=== PATIENT | female | born 1955 | race Caucasian/White ===

== ENCOUNTER 2017-11-23 09:26 | Emergency (ER) | payer OTHER ==
[~2017-11-23] VITALS: Ht 154.9 cm; Wt 74.5 kg
[~2017-11-23 09:26] MED LIST: ACTONEL35 MG; ADULT LOW DOSE81 M1; BENICAR HCT1 TABLET; CARBATROL; COBAL-10001000 MCG/2; COLACE100 MG PO; CRESTOR20 MG; DILANTIN; DILANTIN100 MG; KEPPRA500 MG; MOTRIN800 MG PO; PRILOSEC40 MG; TRICOR48 MG
[2017-11-23 11:56] VITALS: BP 161/72
== END 2017-11-23 12:06 | disposition home or self-care (01) ==
LOC: EME 09:26
PROC: 0JQ00ZZ Repair Scalp Subcutaneous Tissue and Fascia, Open Approach (ICD-10-PCS; principal; 2017-11-23)
DX: S01.01XA Laceration without foreign body of scalp, initial encounter (principal); W01.198A Fall on same level from slipping, tripping and stumbling with subsequent striking against other object, initial encounter; Y93.01 Activity, walking, marching and hiking; Y92.531 Health care provider office as the place of occurrence of the external cause; M48.02 Spinal stenosis, cervical region; I10 Essential (primary) hypertension; E78.5 Hyperlipidemia, unspecified; K21.9 Gastro-esophageal reflux disease without esophagitis; G40.909 Epilepsy, unspecified, not intractable, without status epilepticus
CPT/HCPCS: 70450; 72125; 73080; 73130; 99281; 99283